=== PATIENT | female | born 1995 | race Asian ===

== ENCOUNTER 2017-05-07 01:07 | Emergency (ER) | payer BC, OTHER ==
[~2017-05-07] VITALS: Ht 149.9 cm; Wt 44.8 kg
[2017-05-07 01:15] VITALS: TEMP 36.6; Ht 149.9 cm; Wt 44.8 kg
[2017-05-07] MEDS ORDERED: KETOROLAC TROMETHAMINE 30 MG/ML VIAL IV STA (01:39)
--- NOTE | 2017-05-07 01:40 | EMERGENCY ROOM VISIT NOTE ---
History Report prepared by Simran: Ronn Rey Under the Supervision of: Dr. Farnaz Howard D.O. First contact with patient: 01:26 Chief Complaint: ABDOMINAL PAIN Stated Complaint: ABD PAIN History of Present Illness The patient is a 21 year old female who presents to the Emergency Room with complaints of persistent abdominal pain that started around 1000 yesterday morning. She says that the pain started while she was in class, and has not gone away. The patient notes that she has had one episode of diarrhea as well. She states that she has had pain like this occasionally in the past but the pain usually goes away very quickly. The patient notes that she has had a minimal appetite ever since the pain came on, and only had milk and cereal this morning, and soup in the afternoon. She denies any cough, sore throat, vomiting , nausea, urinary symptoms, or weird tastes in her mouth. The patient says that her last period was 2 weeks ago and it was normal and on time. She states that she has no chronic medical problems and does not take any daily medications. She denies any recent alcohol use in the past few days. She also denies any recent added stresses. The patient notes no history of ulcers of gastrointestinal problems. Source of History: patient Onset: 1000 yesterday morning Position: abdomen Timing: other (persistent) Associated Symptoms: + diarrhea, No sorethroat, No cough, No nausea, No vomiting, No urinary symptoms Note: Associated symptoms: Minimal appetite. Denies weird tastes in mouth. Review of Systems See HPI for pertinent positives & negatives. A total of 10 systems reviewed and were otherwise negative. Past Medical & Surgical Medical Problems: (1) No chronic problems Family History No pertinent family history Social History Smoking Status: Never Smoker Marital Status: in relationship Housing Status: lives with roommate Occupation Status: [employer] Current/Historical Medications No Active Prescriptions or Reported Meds Allergies Coded Allergies: No Known Allergies (Unverified , 05/07/17) Physical Exam Vital Signs Date Time Temp Pulse Resp B/P (MAP) Pulse Ox O2 Delivery O2 Flow Rate FiO2 05/07/17 03:09 63 16 117/68 100 05/07/17 01:15 36.6 86 16 120/87 98 Room Air Physical Exam HEENT: Head - normocephalic and atraumatic Pupils are equal, round, and reactive to light. Extraocular eye muscles are intact, and sclera are anicteric. Nose - moist nasal mucosa without discharge. Mouth - moist buccal mucosa. Oropharynx is nonerythematous and there is no tonsillar exudate or edema noted. Neck: Supple; no JVD, nuchal rigidity, cervical lymphadenopathy. Heart: Regular rate and rhythm. There is a normal S1 and S2 with no murmurs, clicks, or gallops appreciated. Lungs: Clear to auscultation bilaterally with no wheezes, rales, or rhonchi. Abdomen: Soft, moderate tenderness to palpation in epigastrium, nondistended, with good bowel sounds. There are no palpable pulsatile masses or hepatosplenomegaly. There is no guarding, rigidity, or rebound noted. Extremities: No evidence of cyanosis, clubbing, or edema. There are easily palpable peripheral pulses. Skin: warm and dry with good turgor and no rashes. Medical Decision & Procedures Laboratory Results 05/07/17 01:30 Red Blood Count 4.95, Mean Corpuscular Volume 84.2, Mean Corpuscular Hemoglobin 29.9, Mean Corpuscular Hemoglobin Concent 35.5, Mean Platelet Volume 9.5, Neutrophils (%) (Auto) 71.5, Lymphocytes (%) (Auto) 19.8, Monocytes (%) (Auto) 5.8, Eosinophils (%) (Auto) 2.5, Basophils (%) (Auto) 0.1, Neutrophils # (Auto) 7.58, Lymphocytes # (Auto) 2.09, Monocytes # (Auto) 0.61, Eosinophils # (Auto) 0.26, Basophils # (Auto) 0.01 05/07/17 01:30 Test 05/07/17 01:25 05/07/17 01:30 05/07/17 01:39 Urine Color YELLOW Urine Appearance CLEAR (CLEAR) Urine pH 6.0 (4.5-7.5) Urine Specific [place] 1.034 (1.000-1.030) Urine Protein NEG (NEG) Urine Glucose (UA) NEG (NEG) Urine Ketones 1+ (NEG) Urine Occult Blood NEG (NEG) Urine Nitrite NEG (NEG) Urine Bilirubin NEG (NEG) Urine Urobilinogen NEG (NEG) Urine Leukocyte Esterase SMALL (NEG) Urine WBC (Auto) 10-30 /hpf (0-5) Urine RBC (Auto) 0-4 /hpf (0-4) Urine Hyaline Casts (Auto) 10-30 /lpf (0-5) Urine Epithelial Cells (Auto) >30 /lpf (0-5) Urine Bacteria (Auto) NEG (NEG) White Blood Count 10.58 K/uL (4.8-10.8) Red Blood Count 4.95 M/uL (4.2-5.4) Hemoglobin 14.8 g/dL (12.0-16.0) Hematocrit 41.7 % (37-47) Mean Corpuscular Volume 84.2 fL (80-100) Mean Corpuscular Hemoglobin 29.9 pg (25-34) Mean Corpuscular Hemoglobin Concent 35.5 g/dl (32-36) Platelet Count 260 K/uL (130-400) Mean Platelet Volume 9.5 fL (7.4-10.4) Neutrophils (%) (Auto) 71.5 % Lymphocytes (%) (Auto) 19.8 % Monocytes (%) (Auto) 5.8 % Eosinophils (%) (Auto) 2.5 % Basophils (%) (Auto) 0.1 % Neutrophils # (Auto) 7.58 K/uL (1.4-6.5) Lymphocytes # (Auto) 2.09 K/uL (1.2-3.4) Monocytes # (Auto) 0.61 K/uL (0.11-0.59) Eosinophils # (Auto) 0.26 K/uL (0-0.5) Basophils # (Auto) 0.01 K/uL (0-0.2) RDW Standard Deviation 35.9 fL (36.4-46.3) RDW Coefficient of Variation 11.7 % (11.5-14.5) Immature Granulocyte % (Auto) 0.3 % Immature Granulocyte # (Auto) 0.03 K/uL (0.00-0.02) Anion Gap 7.0 mmol/L (3-11) Est Creatinine Clear Calc Drug Dose 86.3 ml/min Estimated GFR () 142.1 Estimated GFR (Non- 122.6 BUN/Creatinine Ratio 9.9 (10-20) Calcium Level 8.8 mg/dl (8.5-10.1) Total Bilirubin 0.6 mg/dl (0.2-1) Direct Bilirubin < 0.1 mg/dl (0-0.2) Aspartate Amino Transf (AST/SGOT) 11 U/L (15-37) Alanine Aminotransferase (ALT/SGPT) 20 U/L (12-78) Alkaline Phosphatase 47 U/L (45-117) Total Protein 8.0 gm/dl (6.4-8.2) Albumin 4.0 gm/dl (3.4-5.0) Lipase 124 U/L (73-393) Urine Test NEG (NEG) Laboratory results per my review. Medications Administered Medications (Trade) Dose Ordered Sig/Bayron Route Start Time Stop Time Status Last Admin Dose Admin Ketorolac Tromethamine (Toradol Inj) 15 mg NOW STAT IV 05/07/17 01:39 05/07/17 01:40 DC 05/07/17 01:55 15 MG Sodium Chloride 500 ml @ 999 mls/hr Q31M STAT IV 05/07/17 02:21 05/07/17 02:51 DC 05/07/17 02:33 999 MLS/HR Procedure 0139: Ordered Toradol Inj 15 mg IV. 0221: Ordered NSS 500 ml @ 999 mls/hr IV. ED Course 0130: Past medical records reviewed. The patient was evaluated in room B5. A complete history and physical exam was performed. 0139: Ordered Toradol Inj 15 mg IV. 0221: Ordered NSS 500 ml @ 999 mls/hr IV. 0245: I reevaluated the patient and she is feeling much better and the pain has subsided. She notes to me that she had a long history of episodes of abdominal pain when she was younger and this reminded her of that. The patient verbally expressed understanding and agreement of the treatment plan. The patient will be discharged. Medical Decision The patient is a 21 year old female who presents to the ED with abdominal pain. Differential diagnosis includes gastritis, pancreatitis, GERD, ulcerative disease. Lab report shows normal white blood cell count, normal H&H, normal LFT's and lipase, normal glucose and renal function, test negative, urine looks contaminated but has 1+ ketones, small leukocyte esterase, 10-30 white blood cells, negative bacteria. The patient presents with greater than 12 hour history of intermittent epigastric abdominal pain. Talked about the possibility of ulcerative disease or GERD. The patient was symptom-free prior to discharge. I've encouraged her to follow bland diet and take plenty of clear liquids. She can follow-up with [facility] if the symptoms persist. If symptoms worsen, she should return to the emergency department. Medication Reconcilliation Current Medication List: was personally reviewed by me No daily medications. Blood Pressure Screening Patient's blood pressure: Normal blood pressure Impression Primary Impression: Epigastric pain Scribe Attestation The scribe's documentation has been prepared under my direction and personally reviewed by me in its entirety. I confirm that the note above accurately reflects all work, treatment, procedures, and medical decision making performed by me. Departure Information Dispostion Home / Self-Care Prescriptions No Active Prescriptions or Reported Meds Referrals No Doctor, Assigned (PCP) Patient Instructions ED Epigastric Pain Dalila GALVAN [facility] Additional Instructions Rest. Take a bland diet and plenty of clear liquids REturn to the ER for worsening pain or vomiting Follow up at [facility] later today if pain persists
[2017-05-07 01:46] LABS: BASO % 0.1 %; BASO ABS # 0.01 K/uL (0-0.2); COMPLETE YES; EOS % 2.5 %; HEMATOCRIT 41.7 % (37-47); IG% 0.3 %; LYMPH % 19.8 %; LYMPH ABS # 2.09 K/uL (1.2-3.4); MEAN CELL VOLUME 84.2 fL (80-100); MEAN CORPUSCULAR HEMOGLOBIN 29.9 pg (25-34); MEAN CORPUSCULAR HGB CONC 35.5 g/dl (32-36); MEAN PLATELET VOLUME 9.5 fL (7.4-10.4); MONO % 5.8 %; NEUT % 71.5 %; PLATELET COUNT 260 K/uL (130-400); RED BLOOD COUNT 4.95 M/uL (4.2-5.4); WHITE BLOOD COUNT 10.58 K/uL (4.8-10.8)
[2017-05-07 02:04] LABS: ALT/SGPT 20 U/L (12-78); AST/SGOT 11 U/L (15-37); BLOOD UREA NITROGEN 7 mg/dl (7-18); BUN/CREATININE RATIO 9.9 (10-20); CALCIUM 8.8 mg/dl (8.5-10.1); CARBON DIOXIDE 25 mmol/L (21-32); CHLORIDE 106 mmol/L (98-107); CREATININE 0.71 mg/dl (0.60-1.20); GLUCOSE 95 mg/dl (70-99); POTASSIUM 3.4 mmol/L (3.5-5.1); SODIUM 138 mmol/L (136-145)
[2017-05-07 02:06] LABS: URINE APPEARANCE CLEAR (CLEAR); URINE BILIRUBIN NEG (NEG); URINE COLOR YELLOW; URINE EPITHELIAL CELL AUTO >30 /lpf (0-5); URINE NITRITE NEG (NEG); URINE SPECIFIC GRAVITY 1.034 (1.000-1.030); UROBILINOGEN NEG (NEG)
[2017-05-07 02:07] LABS: ALKALINE PHOSPHATASE 47 U/L (45-117)
[2017-05-07 02:13] LABS: MANUAL MICROSCOPIC REQUIRED? NO; REVIEW REQ? NO
[2017-05-07] MEDS ORDERED: SODIUM CHLORIDE 0.9% 500ML 500 ML IV STA (02:21)
[2017-05-07 03:09] VITALS: BP 117/68; PULSE 63; O2SAT 100
== END 2017-05-07 03:10 | disposition home or self-care (01) ==
LOC: C.EDB 01:08
DX: R10.13 Epigastric pain (principal)

== ENCOUNTER 2017-06-06 16:47 | Emergency (ER) | payer BC, OTHER ==
[~2017-06-06] VITALS: Ht 149.9 cm; Wt 44.3 kg
[2017-06-06 17:14] VITALS: TEMP 37.6; Ht 149.9 cm; Wt 44.3 kg
[2017-06-06] MEDS ORDERED: KETOROLAC TROMETHAMINE 30 MG/ML VIAL IV STA (17:24)
[2017-06-06] MEDS ORDERED: SODIUM CHLORIDE 0.9% 1000ML 1,000 ML IV STA (17:24)
[2017-06-06] MEDS ORDERED: ONDANSETRON INJ 2 MG/ML 2 ML VIAL IV STA (17:24)
[2017-06-06 17:52] LABS: BASO % 0.4 %; BASO ABS # 0.03 K/uL (0-0.2); COMPLETE YES; EOS % 3.9 %; HEMATOCRIT 40.6 % (37-47); IG% 0.1 %; LYMPH % 21.8 %; LYMPH ABS # 1.78 K/uL (1.2-3.4); MEAN CELL VOLUME 82.7 fL (80-100); MEAN CORPUSCULAR HEMOGLOBIN 28.3 pg (25-34); MEAN CORPUSCULAR HGB CONC 34.2 g/dl (32-36); MEAN PLATELET VOLUME 9.3 fL (7.4-10.4); MONO % 5.9 %; NEUT % 67.9 %; PLATELET COUNT 228 K/uL (130-400); RED BLOOD COUNT 4.91 M/uL (4.2-5.4); WHITE BLOOD COUNT 8.16 K/uL (4.8-10.8)
[2017-06-06 18:01] LABS: MANUAL MICROSCOPIC REQUIRED? NO; REVIEW REQ? NO; URINE APPEARANCE CLEAR (CLEAR); URINE BILIRUBIN NEG (NEG); URINE COLOR YELLOW; URINE EPITHELIAL CELL AUTO 0-5 /lpf (0-5); URINE NITRITE NEG (NEG); URINE PH 5.5 (4.5-7.5); URINE SPECIFIC GRAVITY 1.027 (1.000-1.030); UROBILINOGEN NEG (NEG); ZZUR CULT IF INDIC CLEAN CATCH NO
[2017-06-06 18:06] LABS: ALT/SGPT 17 U/L (12-78); BLOOD UREA NITROGEN 11 mg/dl (7-18); BUN/CREATININE RATIO 13.5 (10-20); CALCIUM 8.7 mg/dl (8.5-10.1); CARBON DIOXIDE 27 mmol/L (21-32); CHLORIDE 106 mmol/L (98-107); CREATININE 0.82 mg/dl (0.60-1.20); GLUCOSE 86 mg/dl (70-99); POTASSIUM 3.3 mmol/L (3.5-5.1); SODIUM 140 mmol/L (136-145)
[2017-06-06 18:09] LABS: ALKALINE PHOSPHATASE 45 U/L (45-117); AST/SGOT 13 U/L (15-37)
[2017-06-06] MEDS ORDERED: OPTIRAY 320 IV PRN (18:15)
--- NOTE | 2017-06-06 20:06 | DIAGNOSTIC IMAGING REPORT ---
PELVIC ULTRASOUND CLINICAL HISTORY: Right lower quadrant abdominal pain. COMPARISON STUDY: None. TECHNIQUE: Transabdominal sonography of the pelvis was performed. The patient deferred transvaginal imaging. FINDINGS: The uterus measures 7.5 x 3.8 x 4 cm. Endometrium measures 1.2 cm in thickness. The right ovary measures 4 x 2.4 x 2.4 cm and likely contains a small corpus luteal cyst. The left ovary measures 2.3 x 3.5 x 2.3 cm. Color flow is identified within each ovary. Trace free fluid is likely physiologic. IMPRESSION: 1. No significant abnormality within the pelvis by sonography. 2. Suspected right ovarian corpus luteal cyst. 3. Trace pelvic fluid which is likely physiologic. Electronically signed by: Maxwell Vernon M.D. 06/06/2017 8:04 PM Dictated Date/Time: 06/06/2017 8:03 PM
--- NOTE | 2017-06-06 20:53 | DIAGNOSTIC IMAGING REPORT ---
CT OF THE ABDOMEN AND PELVIS WITH CONTRAST CLINICAL HISTORY: Right lower quadrant abdominal pain. COMPARISON STUDY: Pelvic ultrasound June 06, 2017. TECHNIQUE: Following IV administration of 90 mL of Optiray-320, axial images of the abdomen and pelvis were obtained from the lung bases to the proximal femurs. Images were reviewed in the axial, sagittal, and coronal planes. IV contrast was administered without complication. A dose lowering technique was utilized adhering to the principles of ALARA. Oral contrast was administered. CT DOSE: 243.43 mGy.cm FINDINGS: The liver, spleen, adrenal glands, kidneys and pancreas are normal. There is no biliary or pancreatic ductal dilatation. No peripancreatic or pericholecystic infiltration is present. There is no hydronephrosis. Caliber and wall thickness of small and large bowel are normal. The appendix is normal. There is no free fluid. No lymphadenopathy is present. A 1.6 cm peripherally enhancing focus within the right ovary favors a corpus luteal cyst. No pneumatosis, free air or portal venous gas is present. Skeletal structures are unremarkable. IMPRESSION: 1. No acute process within the abdomen or pelvis. Normal appendix. 2. Suspected 1.6 cm right ovarian corpus luteal cyst. Electronically signed by: Maxwell Vernon M.D. 06/06/2017 8:51 PM Dictated Date/Time: 06/06/2017 8:46 PM
[2017-06-06 22:30] VITALS: BP 108/74; PULSE 71; O2SAT 98
--- NOTE | 2017-06-07 00:02 | EMERGENCY ROOM VISIT NOTE ---
History Report prepared by Simran: Dileep David Under the Supervision of: Dr. Chad Perez D.O. First contact with patient: 17:17 Chief Complaint: ABDOMINAL PAIN Stated Complaint: LOWER RT ABD PAIN History of Present Illness The patient is a 21 year old female who presents to the Emergency Room with complaints of constant right lower quadrant abdominal pain beginning this morning. The patient states she woke up this morning with her discomfort. She reports she was here about a month ago for pain in her upper abdomen. The patient notes she came back the following day because it had migrated to the right lower quadrant. She states her pain went away after a few days. The patient reports her current symptoms are different, and it fluctuates in intensity. She notes her last bowel movement was this morning, and it was normal. The patient states her last menstrual period was three weeks ago. She denies taking medication and a history of chronic diseases. The patient also denies pain with urination, burning with urination, changes in appetite and fluid intake, vaginal bleed, vaginal discharge, and a history of an ovarian cyst. Source of History: patient Onset: this morning Position: abdomen (RLQ) Timing: constant Note: denies pain with urination, burning with urination, changes in appetite and fluid intake, vaginal bleed, vaginal discharge, and a history of an ovarian cyst. Review of Systems See HPI for pertinent positives & negatives. A total of 10 systems reviewed and were otherwise negative. Past Medical & Surgical Medical Problems: (1) No chronic problems Family History No pertinent family history Social History Smoking Status: Never Smoker Marital Status: in relationship Housing Status: lives with roommate Occupation Status: [employer] student Current/Historical Medications No Active Prescriptions or Reported Meds Allergies Coded Allergies: No Known Allergies (Unverified , 06/06/17) Physical Exam Vital Signs Date Time Temp Pulse Resp B/P (MAP) Pulse Ox O2 Delivery O2 Flow Rate FiO2 06/06/17 22:30 71 20 108/74 98 06/06/17 20:40 71 18 113/71 100 Room Air 06/06/17 18:22 66 20 101/60 100 Room Air 06/06/17 17:14 37.6 74 18 121/76 99 Room Air Physical Exam GENERAL: Sitting up in bed, alert, well appearing, well nourished, no distress, non-toxic EYE EXAM: normal conjunctiva OROPHARYNX: no exudate, no erythema, lips, buccal mucosa, and tongue normal and mucous membranes are moist NECK: supple, no nuchal rigidity, no adenopathy, non-tender LUNGS: Clear to auscultation. Normal chest wall mechanics HEART: no murmurs, S1 normal and S2 normal ABDOMEN: abdomen soft, minimally tender to the right lower quadrant, normo- active bowel sounds, no masses, no rebound or guarding. BACK: Back is symmetrical on inspection and there is no deformity, no midline tenderness, no CVA tenderness. SKIN: no rashes and no bruising UPPER EXTREMITIES: upper extremities are grossly normal. LOWER EXTREMITIES: No pitting edema. NEURO EXAM: Normal sensorium, cranial nerves II-XII grossly intact, normal speech, no gross weakness of arms, no gross weakness of legs. Medical Decision & Procedures ER Provider Diagnostic Interpretation: Radiology results as stated below per my review and the radiologist's interpretation: PELVIC ULTRASOUND CLINICAL HISTORY: Right lower quadrant abdominal pain. COMPARISON STUDY: None. TECHNIQUE: Transabdominal sonography of the pelvis was performed. The patient deferred transvaginal imaging. FINDINGS: The uterus measures 7.5 x 3.8 x 4 cm. Endometrium measures 1.2 cm in thickness. The right ovary measures 4 x 2.4 x 2.4 cm and likely contains a small corpus luteal cyst. The left ovary measures 2.3 x 3.5 x 2.3 cm. Color flow is identified within each ovary. Trace free fluid is likely physiologic. IMPRESSION: 1. No significant abnormality within the pelvis by sonography. 2. Suspected right ovarian corpus luteal cyst. 3. Trace pelvic fluid which is likely physiologic. Electronically signed by: Maxwell Vernno M.D. 06/06/2017 8:04 PM Dictated Date/Time: 06/06/2017 8:[address] OF THE ABDOMEN AND PELVIS WITH CONTRAST CLINICAL HISTORY: Right lower quadrant abdominal pain. COMPARISON STUDY: Pelvic ultrasound June 06, 2017. TECHNIQUE: Following IV administration of 90 mL of Optiray-320, axial images of the abdomen and pelvis were obtained from the lung bases to the proximal femurs. Images were reviewed in the axial, sagittal, and coronal planes. IV contrast was administered without complication. A dose lowering technique was utilized adhering to the principles of ALARA. Oral contrast was administered. CT DOSE: 243.43 mGy.cm FINDINGS: The liver, spleen, adrenal glands, kidneys and pancreas are normal. There is no biliary or pancreatic ductal dilatation. No peripancreatic or pericholecystic infiltration is present. There is no hydronephrosis. Caliber and wall thickness of small and large bowel are normal. The appendix is normal. There is no free fluid. No lymphadenopathy is present. A 1.6 cm peripherally enhancing focus within the right ovary favors a corpus luteal cyst. No pneumatosis, free air or portal venous gas is present. Skeletal structures are unremarkable. IMPRESSION: 1. No acute process within the abdomen or pelvis. Normal appendix. 2. Suspected 1.6 cm right ovarian corpus luteal cyst. Electronically signed by: Maxwell Vernon M.D. 06/06/2017 8:51 PM Dictated Date/Time: 06/06/2017 8:46 PM Laboratory Results 06/06/17 17:40 Red Blood Count 4.91, Mean Corpuscular Volume 82.7, Mean Corpuscular Hemoglobin 28.3, Mean Corpuscular Hemoglobin Concent 34.2, Mean Platelet Volume 9.3, Neutrophils (%) (Auto) 67.9, Lymphocytes (%) (Auto) 21.8, Monocytes (%) (Auto) 5.9, Eosinophils (%) (Auto) 3.9, Basophils (%) (Auto) 0.4, Neutrophils # (Auto) 5.54, Lymphocytes # (Auto) 1.78, Monocytes # (Auto) 0.48, Eosinophils # (Auto) 0.32, Basophils # (Auto) 0.03 06/06/17 17:40 Test 06/06/17 17:35 06/06/17 17:40 Urine Color YELLOW Urine Appearance CLEAR (CLEAR) Urine pH 5.5 (4.5-7.5) Urine Specific [place] 1.027 (1.000-1.030) Urine Protein NEG (NEG) Urine Glucose (UA) NEG (NEG) Urine Ketones NEG (NEG) Urine Occult Blood NEG (NEG) Urine Nitrite NEG (NEG) Urine Bilirubin NEG (NEG) Urine Urobilinogen NEG (NEG) Urine Leukocyte Esterase NEG (NEG) Urine WBC (Auto) 0 /hpf (0-5) Urine RBC (Auto) 0-4 /hpf (0-4) Urine Hyaline Casts (Auto) 1-5 /lpf (0-5) Urine Epithelial Cells (Auto) 0-5 /lpf (0-5) Urine Bacteria (Auto) NEG (NEG) Urine Test NEG (NEG) White Blood Count 8.16 K/uL (4.8-10.8) Red Blood Count 4.91 M/uL (4.2-5.4) Hemoglobin 13.9 g/dL (12.0-16.0) Hematocrit 40.6 % (37-47) Mean Corpuscular Volume 82.7 fL (80-100) Mean Corpuscular Hemoglobin 28.3 pg (25-34) Mean Corpuscular Hemoglobin Concent 34.2 g/dl (32-36) Platelet Count 228 K/uL (130-400) Mean Platelet Volume 9.3 fL (7.4-10.4) Neutrophils (%) (Auto) 67.9 % Lymphocytes (%) (Auto) 21.8 % Monocytes (%) (Auto) 5.9 % Eosinophils (%) (Auto) 3.9 % Basophils (%) (Auto) 0.4 % Neutrophils # (Auto) 5.54 K/uL (1.4-6.5) Lymphocytes # (Auto) 1.78 K/uL (1.2-3.4) Monocytes # (Auto) 0.48 K/uL (0.11-0.59) Eosinophils # (Auto) 0.32 K/uL (0-0.5) Basophils # (Auto) 0.03 K/uL (0-0.2) RDW Standard Deviation 35.8 fL (36.4-46.3) RDW Coefficient of Variation 11.8 % (11.5-14.5) Immature Granulocyte % (Auto) 0.1 % Immature Granulocyte # (Auto) 0.01 K/uL (0.00-0.02) Anion Gap 7.0 mmol/L (3-11) Est Creatinine Clear Calc Drug Dose 74.7 ml/min Estimated GFR () 119.4 Estimated GFR (Non- 103.0 BUN/Creatinine Ratio 13.5 (10-20) Calcium Level 8.7 mg/dl (8.5-10.1) Total Bilirubin 0.6 mg/dl (0.2-1) Direct Bilirubin < 0.1 mg/dl (0-0.2) Aspartate Amino Transf (AST/SGOT) 13 U/L (15-37) Alanine Aminotransferase (ALT/SGPT) 17 U/L (12-78) Alkaline Phosphatase 45 U/L (45-117) Total Protein 8.0 gm/dl (6.4-8.2) Albumin 4.1 gm/dl (3.4-5.0) Lipase 204 U/L (73-393) Laboratory results per my review. Medications Administered Medications (Trade) Dose Ordered Sig/Bayron Route Start Time Stop Time Status Last Admin Dose Admin Sodium Chloride 1,000 ml @ 999 mls/hr Q1H1M STAT IV 06/06/17 17:24 06/06/17 18:24 DC 06/06/17 17:55 999 MLS/HR Ondansetron HCl (Zofran Inj) 4 mg NOW STAT IV 06/06/17 17:24 06/06/17 17:26 DC 06/06/17 17:55 4 MG Ketorolac Tromethamine (Toradol Inj) 30 mg NOW STAT IV 06/06/17 17:24 06/06/17 17:26 DC 06/06/17 17:55 30 MG ED Course ED COURSE: Vital signs were reviewed and showed normotensive. The patients medical record was reviewed The above diagnostic studies were performed and reviewed. ED treatments and interventions as stated above. 1720: The patient was evaluated in room B03B. A complete history and physical examination was performed. 4: Ordered Toradol Inj 30mg IV, Zofran Inj 4mg IV, Sodium Chloride 1000 ml @ 999 mls/hr IV 2121: I reevaluated the patient and updated her of her current exam findings. 8: Upon reevaluation, the patient is resting comfortably. I discussed my findings with the patient and she understands and agrees with the treatment plan. Based on the patients age, coexisting illnesses, exam and lab findings the decision to treat as an outpatient was made. The patient remained stable while under my care. The patient appeared well at the time of discharge. Medical Decision Differential diagnoses includes but is not limited to gastritis, peptic ulcer disease, GERD, gallbladder disease, pancreatitis, small bowel obstruction, acute coronary syndrome, pericarditis, ischemic bowel, irritable bowel disease, irritable bowel syndrome, appendicitis, diverticulitis, malignancy, hernia, urinary tract infection, torsion, /ectopic (if female), perforation, trauma, infectious. Patient is a 21-year-old female who presents to ER for right lower quadrant abdominal pain associated with nausea. Abdominal exam is fairly benign. CBC along with BMP, LFTs, bilirubin lipase was remarkable for a faint hypokalemia. Ultrasound shows a possible ovarian cyst. CT confirms that there is an ovarian cyst. Normal appendix. UA was negative. Prednisone was negative. Patient declined pain meds. She was given fluids, Toradol and Zofran. She was updated at bedside and discharged follow-up with PCP. Discussed with Pt concerning signs and symptoms to watch out for. Pt was instructed to follow up with their PCP and discussed with the patient their option to return to the ED at anytime for persistent or worsening symptoms. The appropriate anticipatory guidance and out-patient management, including indications for return to the emergency department, were explained at length to the patient and understood. Medication Reconcilliation Current Medication List: was personally reviewed by me Blood Pressure Screening Patient's blood pressure: Normal blood pressure Blood pressure disposition: Did not require urgent referral Impression Primary Impression: Right ovarian cyst Scribe Attestation The scribe's documentation has been prepared under my direction and personally reviewed by me in its entirety. I confirm that the note above accurately reflects all work, treatment, procedures, and medical decision making performed by me. Departure Information Dispostion Home / Self-Care Prescriptions No Active Prescriptions or Reported Meds Referrals [facility] Forms HOME CARE DOCUMENTATION FORM, IMPORTANT VISIT INFORMATION Patient Instructions ED Cyst Ovarian, My [facility] Additional Instructions Please follow up with your primary care doctor or if you are a student, [facility] with in the next 24 hours. Any worsening of your symptoms, please return to the ED immediately. This includes any fevers greater than 100.4, worsening pain, chest pain, shortness breath, persistent nausea, vomiting, unable to eat or drink, or any other concerning signs or symptoms from your standpoint. Please take tylenol or Motrin as needed for pain.
== END 2017-06-06 22:33 | disposition home or self-care (01) ==
LOC: C.EDB 16:48
DX: N83.201 Unspecified ovarian cyst, right side (principal)